=== PATIENT | female | born 1980 | race Two or more races ===

== ENCOUNTER 2023-01-06 00:33 | Emergency (ER) | payer SELFPAY ==
--- NOTE | 2023-01-06 02:07 | ED_ITS ---
HPI - Extremity Problem General Stated complaint: nausea, vomiting, diarrhea Time Seen by Provider: 01/06/23 01:31 History of Present Illness HPI Narrative: Patient is a 42-year-old female with a history of working at [employer] on a daily basis patient stated that she is on her feet for 18 hours a day. Complaining of blisters on the bottom of her feet. Patient was also seen at [facility] earlier for nausea vomiting diarrhea. Claims a miles nausea vomiting diarrhea has improved. Patient has no fever no chills no abdominal pain at this time. Tolerate fluids. She wants a work note for her blisters. Patient also lives very far away. Been walking a lot. Which has also contributed to her blisters. There has been no change in her shoes. Patient denies any history of diabetes. Review of Systems Review of Systems: Positive pain to her feet Yes all other systems are reviewed and are negative PMFSH Past Medical History Attestation statement: The following information was validated with the patient. Physical Exam Vital Signs: Vital Signs: Appearance: Alert. Oriented X3. No acute distress. Eyes: Pupils equal, round and reactive to light. ENT: Pharynx normal. Neck: Normal inspection. Neck supple. No lymph nodes noted. No crepitus CVS: Normal heart rate and rhythm. Pulses normal. Normal S1 and S2 Respiratory: No respiratory distress. Breath sounds normal. No Wheezing. No rales Abdomen: Soft and nontender. No rigidity. No distention. good BS x4 Skin: Skin warm and dry. Normal skin color. Normal skin turgor. Extremities: No lower extremity edema. Neurovascular intact to all extremities. No Lacerations. Positive blister at the heel of the left foot. No redness. Distal pulses intact. Movement of the toes intact. Sensation intact Neuro: Oriented X 3. No motor deficit. No sensory deficit. Moving all extermities. No slurred speech Discharge Plan Discharge Clinical Impression: Blister (nonthermal), left foot, sequela Patient Disposition: Home, Self-Care Instructions: Blister (ED) Additional Instructions: Please try to stay off your feet. He may require a new shoes. Referrals: Physician,Nikole J [Primary Care Provider] - 01/09/23 Stand Alone Forms: Work/School Release
--- NOTE | 2023-01-06 02:18 | PC.NURSE ---
Dr Alan spoke with me, stating pt requested a new nurse. Pt is up for discharge at this time
[2023-01-06 02:20] VITALS: BP 120/77; PULSE 80; RESP 16; TEMP 37; O2SAT 100; BMI 48.4
[2023-01-06 02:26] VITALS: BP 102/54; PULSE 56; RESP 16; TEMP 36.4; O2SAT 97
[2023-01-06] MEDS: Acetaminophen 325 MG TABLET 650 MG PO (02:42)
== END 2023-01-06 02:48 | disposition home or self-care (01) ==
LOC: HO.ED 02:29
PROVIDERS: Emergency Provider Emergency Medicine Emergency Medical Services
DX: S90.822A Blister (nonthermal), left foot, initial encounter (principal); X58.XXXA Exposure to other specified factors, initial encounter; Y93.9 Activity, unspecified; Y92.9 Unspecified place or not applicable; Y99.9 Unspecified external cause status
CPT/HCPCS: 99283; 99284